=== PATIENT | female | born 1980 | race Caucasian/White ===

== ENCOUNTER 2018-12-01 12:24 | Inpatient (IN) | payer OTHER, BC ==
[2018-12-01] MEDS ORDERED: CARBOPROST 250 MCG INJ IM (14:00)
[2018-12-01] MEDS ORDERED: LIDOCAINE 1% (MPF) 30 ML INJ INJ (14:00)
[2018-12-01] MEDS ORDERED: METHYLERGONOVINE 0.2 MG INJ IM (14:00)
[2018-12-01] MEDS ORDERED: OXYTOCIN 30 UNITS/LR 500 ML IV ×2 (14:00)
[2018-12-01] MEDS ORDERED: IBUPROFEN 600 MG TAB PO (14:00)
[2018-12-01 14:01] LABS: ADD MAN DIFF? NO
[2018-12-01 14:05] LABS: BASOPHILS % 0.3 % (0.0-2.0); EOSINOPHILS # 0.1 10^3/ul (0.0-0.5); EOSINOPHILS % 0.9 % (0.0-7.0); HEMATOCRIT 32.2 % (37.0-47.0); HEMOGLOBIN 10.7 g/dl (12.0-16.0); LYMPHOCYTES # 1.1 10^3/ul (0.8-2.9); LYMPHOCYTES % 16.3 % (15.0-51.0); MEAN CORPUSCULAR HEMOGLOBIN 28.9 pg (29.0-33.0); MEAN CORPUSCULAR HGB CONC 33.2 g/dl (32.0-37.0); MEAN PLATELET VOLUME 9.5 fl (7.4-10.4); MONOCYTE # 0.5 10^3/ul (0.3-0.9); MONOCYTES % 7.5 % (0.0-11.0); NEUTROPHIL # 5.2 10^3/ul (1.6-7.5); NEUTROPHILS % 74.4 % (39.0-77.0); PLATELET COUNT 258 10^3/UL (140-415); RED CELL DISTRIBUTION WIDTH 14.8 % (11.5-14.5)
[2018-12-01 14:05] LABS: WHITE BLOOD COUNT 6.9 10^3/ul (4.8-10.8)
[2018-12-01 14:24] LABS: INR 0.88; PT RATIO 0.9
[2018-12-01 14:25] LABS: ALANINE AMINOTRANSFERASE 23 IU/L (13-69); ALBUMIN 3.7 g/dl (3.3-4.9); ALBUMIN/GLOBULIN RATIO 1.08; ALKALINE PHOSPHATASE 124 IU/L (42-121); ANION GAP 10 (5-13); ASPARTATE AMINO TRANSFERASE 19 IU/L (15-46); BILIRUBIN,INDIRECT 0.4 mg/dl (0-1.1); BILIRUBIN,TOTAL 0.4 mg/dl (0.2-1.3); BLOOD UREA NITROGEN 10 mg/dl (7-20); CALCIUM 9.9 mg/dl (8.4-10.2); CARBON DIOXIDE 21 mmol/L (21-31); CHLORIDE 106 mmol/L (97-110); Estimated GFR > 60 mL/min (>60); GLUCOSE 76 mg/dl (70-220); PARTIAL THROMBOPLASTIN TIME 26.9 Sec (23.0-35.0); POTASSIUM 4.3 mmol/L (3.5-5.1); SODIUM 137 mmol/L (135-144); TOTAL PROTEIN 7.1 g/dl (6.1-8.1)
[2018-12-01 14:26] LABS: URIC ACID 4.6 mg/dl (3.1-7.9)
[2018-12-01 14:56] LABS: HEPATITIS B SURFACE ANTIGEN NEGATIVE (NEGATIVE)
[2018-12-01] MEDS: LACTATED RINGER'S 1,000 ML IV ×2 (15:01→22:44)
[2018-12-01 15:04] LABS: RAPID PLASMA REAGIN NONREACTIVE (NR)
[2018-12-01] MEDS: MISOPROSTOL 50 MCG CAPSULE VAG ×3 (15:55→20:00)
[2018-12-01] MEDS ORDERED: MISOPROSTOL 50 MCG CAPSULE VAG (17:00)
[2018-12-01] MEDS: LABETALOL 100 MG TAB PO (21:10)
[2018-12-02] MEDS: MISOPROSTOL 50 MCG CAPSULE VAG ×3 (04:00→09:00)
[2018-12-02] MEDS: LACTATED RINGER'S 1,000 ML IV ×2 (06:02→07:02)
[2018-12-02] MEDS ORDERED: ROPIVACAINE 0.2% 100 ML (06:20)
[2018-12-02] MEDS ORDERED: NALOXONE (0.4 MG/ML) INJ IV (06:30)
[2018-12-02] MEDS ORDERED: DIPHENHYDRAMINE 50 MG INJ IV ×2 (06:30→12:00)
[2018-12-02] MEDS ORDERED: FENTAnyl 2MCG/ML-ROPIV 0.2% 100 ML BAG EPI ×2 (06:30)
[2018-12-02] MEDS ORDERED: ONDANSETRON 4 MG INJ IV ×2 (06:30→12:00)
[2018-12-02] MEDS: THYROID 30 MG TAB PO (09:00)
[2018-12-02] MEDS: LABETALOL 100 MG TAB PO ×2 (09:06→21:49)
[2018-12-02] MEDS: OXYTOCIN 30 UNITS/LR 500 ML IV ×2 (09:59→12:02)
[2018-12-02] MEDS: MISOPROSTOL 200 MCG TAB PR (11:54)
[2018-12-02] MEDS ORDERED: METHYLERGONOVINE 0.2 MG INJ IM (12:00)
[2018-12-02] MEDS ORDERED: ACETAMINOPHEN 325 MG TAB PO (12:00)
[2018-12-02] MEDS: IBUPROFEN 800 MG TAB PO ×2 (12:00→18:00)
[2018-12-02] MEDS ORDERED: ONDANSETRON 4 MG TAB PO (12:00)
[2018-12-02] MEDS ORDERED: CARBOPROST 250 MCG INJ IM (12:00)
[2018-12-02] MEDS ORDERED: MAGNESIUM HYDROXIDE 30ML CUP PO (12:00)
[2018-12-02] MEDS ORDERED: HYDROCODONE/APAP (5/325) TAB PO ×2 (12:00)
[2018-12-02] MEDS ORDERED: DIPHENHYDRAMINE 25 MG CAP PO (12:00)
[2018-12-02] MEDS ORDERED: THYROID PORK 180 MG PO (12:00)
[2018-12-02] MEDS ORDERED: MISOPROSTOL 200 MCG TAB PR (12:00)
[2018-12-02] MEDS ORDERED: DIBUCAINE 1% 30 GM OINT TOP (12:00)
[2018-12-02] MEDS ORDERED: OXYTOCIN 30 UNITS/LR 500 ML IV (12:00)
[2018-12-02] MEDS: ACETAMINOPHEN 325 MG TAB PO (14:35)
[2018-12-02] MEDS: BENZOCAINE 20% 56 ML SPRAY TOP ×2 (16:39→16:40)
[2018-12-02] MEDS: LANOLIN HPA 1 PKT TOP (16:39)
[2018-12-02] MEDS: LACTATED RINGER'S 1,000 ML IV* ×2 (17:38→19:59)
[2018-12-02] MEDS: SENNA/DOCUSATE NA (8.6MG/50MG) TAB PO (21:49)
[2018-12-03] MEDS: ACETAMINOPHEN 325 MG TAB PO ×2 (00:12→05:01)
[2018-12-03] MEDS: IBUPROFEN 800 MG TAB PO ×3 (06:00→12:00)
[2018-12-03 08:06] LABS: ADD MAN DIFF? NO
[2018-12-03 08:09] LABS: WHITE BLOOD COUNT 9.2 10^3/ul (4.8-10.8)
[2018-12-03 08:09] LABS: BASOPHILS % 0.4 % (0.0-2.0); EOSINOPHILS # 0.1 10^3/ul (0.0-0.5); HEMATOCRIT 31.6 % (37.0-47.0); HEMOGLOBIN 10.4 g/dl (12.0-16.0); LYMPHOCYTES # 1.9 10^3/ul (0.8-2.9); LYMPHOCYTES % 20.3 % (15.0-51.0); MEAN CORPUSCULAR HEMOGLOBIN 29.3 pg (29.0-33.0); MEAN CORPUSCULAR HGB CONC 32.9 g/dl (32.0-37.0); MEAN PLATELET VOLUME 9.6 fl (7.4-10.4); MONOCYTE # 0.7 10^3/ul (0.3-0.9); MONOCYTES % 7.2 % (0.0-11.0); NEUTROPHIL # 6.5 10^3/ul (1.6-7.5); NEUTROPHILS % 70.2 % (39.0-77.0); PLATELET COUNT 204 10^3/UL (140-415); RED BLOOD COUNT 3.55 10^6/ul (4.20-5.40); RED CELL DISTRIBUTION WIDTH 14.6 % (11.5-14.5)
[2018-12-03] MEDS: THYROID 30 MG TAB PO (10:29)
[2018-12-03] MEDS: LABETALOL 100 MG TAB PO (10:30)
[2018-12-04] MEDS ORDERED: MEASLES,MUMPS,RUBELLA VACCINE INJ SC* (09:00)
[2018-12-04] MEDS ORDERED: VARICELLA VACCINE LIVE/PF 1,350 UNIT/0.5 ML ML SC* (09:00)
[2018-12-04] MEDS ORDERED: DIPHTH/TET/ACEL PERTUSS (ADULT) 0.5 ML VIAL IM* (09:00)
== END 2018-12-03 17:05 | disposition home or self-care (01) | DRG 807 ==
LOC: L-D 12:24 → PP1 12-02 14:07
PROC: 10E0XZZ Delivery of Products of Conception, External Approach (ICD-10-PCS; principal; 2018-12-02)
PROC: 0HQ9XZZ Repair Perineum Skin, External Approach (ICD-10-PCS; 2018-12-02)
PROC: 3E0P7VZ Introduction of Hormone into Female Reproductive, Via Natural or Artificial Opening (ICD-10-PCS; 2018-12-02)
DX: O10.02 Pre-existing essential hypertension complicating childbirth (principal); Z37.0 Single live birth; O99.284 Endocrine, nutritional and metabolic diseases complicating childbirth; E03.9 Hypothyroidism, unspecified; O77.0 Labor and delivery complicated by meconium in amniotic fluid; O70.0 First degree perineal laceration during delivery; Z3A.39 39 weeks gestation of pregnancy; Z87.59 Personal history of other complications of pregnancy, childbirth and the puerperium
CPT/HCPCS: 62319; 76815; 80053; 84560; 85025; 85384; 85610; 85730; 86592; 86850; 86900; 86901; 87340; 99464